=== PATIENT | female | born 1990 | race Caucasian/White ===

== ENCOUNTER 2018-10-13 22:39 | Emergency (ER) | payer OTHER ==
[2018-10-13 22:48] VITALS: BMI 48.9
[2018-10-13] MEDS ORDERED: SODIUM CHLORIDE IV ONE (23:29)
[2018-10-13] MEDS ORDERED: ACETAMINOPHEN 1000 MG/100 ML VIAL (NON FORMULARY) IVPB ONE (23:37)
--- NOTE | 2018-10-13 23:48 | PDOC ---
History of Present Illness - General Chief Complaint: Head/Neck problem Stated Complaint: FEVER/STIFF NECK/SENT BY PCP Time Seen by Provider: 10/13/18 22:56 History Source: Patient Exam Limitations: No Limitations - History of Present Illness Initial Comments: 10/13/18 23:41 28 yo F pmh PCOS p/w 4 days of fever/chills and headaches. PCP concerned about meningitis sent pt to ED. Pt measured temp at 102F. Headache described as frontal and throbbing, different than her migraines. Endorses mild neck stiffness, body myalgias and weakness, mild lightheadedness, and photophobia. Endorses decrease appetite when she feels febrile. Denies N/V/D, abdominal pain, dysuria, cough, sore throat, runny nose, ear pain , ear discharge. Denies changes in vision and hearing, numbness, tingling, dizziness, and focal neurologic deficits. No sick contacts. H/o PCOS NKDA No significant surgical hx Past History - Past Medical History Allergies/Adverse Reactions: Allergies Allergy/AdvReac Type Severity Reaction Status Date / Time No Known Allergies Allergy Verified 10/13/18 22:48 COPD: No Other medical history: PICOS - Suicide/Smoking/Psychosocial Hx Smoking History: Never smoked Review of Systems - Review of Systems Able to Perform ROS?: Yes Is the patient limited Mongolian proficient: No Constitutional: Yes: Chills, Fever HEENTM: No: Blurred Vision, Double Vision, Ear Discharge, Hearing Loss, Throat Pain Respiratory: No: Shortness of Breath Cardiac (ROS): Yes: Lightheadedness (see hpi, mild ). No: Chest Pain ABD/GI: Yes: Poor Appetite ("only with fever" ). No: Diarrhea, Nausea, Vomiting , Abdominal cramping : No: Dysuria Musculoskeletal: Yes: Joint Pain, Muscle Weakness Neurological: Yes: Headache, Weakness. No: Numbness, Tingling *Physical Exam - Vital Signs Last Vital Signs Temp Pulse Resp BP Pulse Ox 103 F H 115 H 18 142/81 99 10/13/18 22:44 10/13/18 22:44 10/13/18 22:44 10/13/18 22:44 10/13/18 22:44 - Physical Exam Comments: 10/13/18 23:50 GEN: resting in bed comfortably, NAD. Feels warm. HEENT: NC/AT, EOMI, PERRLA, CN II-XII intact. R EAR: clear EAC, TM translucent, nonbulging. L EAR: clear EAC, TM translucent, nonbulging. Moist membranes, nonerythematous oropharynx. FROM of the neck. NEURO: neg kernig and brudzinski signs. 5/5 UE and LE strength b/l. Sensation grossly intact in all extremities. CV: s1/s2, rapid, regular rhythm. no m/r/g LUNG: CTAB, no wheezes GI: soft, nt, nd, +BS ED Treatment Course - LABORATORY CBC & Chemistry Diagram: 10/14/18 00:05 10/14/18 00:05 Medical Decision Making - Medical Decision Making 10/13/18 23:55 28 yo F presenting with high fever, headache, and photophobia of 4 days. DDx meningitis, viral illness, sepsis Fever, Headache, Photophobia - CT Head - labs - CXR - consider LP 10/14/18 02:06 Given lab results and clinical picture (pt is nontoxic appearing with minimal neck stiffness), this is unlikely meningitis. Likely fever of viral origin. Dispo: home with strict return precautions *DC/Admit/Observation/Transfer Diagnosis at time of Disposition: Fever Qualifiers: Fever type: unspecified Qualified Code(s): R50.9 - Fever, unspecified - Discharge Dispostion Disposition: HOME Condition at time of disposition: Good Decision to Admit order: No - Referrals - Patient Instructions Printed Discharge Instructions: DI for Fever (Symptom) -- Adult Additional Instructions: For your fever and aches - you may take 1000mg of tylenol every 6 hours. You may add motrin between tylenol doses. Tylenol then 3 hours later can take motrin then 3 hours later can take tylenol and repeat. Please see your primary care physician within the next 4 days. Please return to the Emergency Department if you experience any of the following symptoms: increasing fevers, worsening headaches, worsening neck stiffness, worsening photophobia, increasing fatigue, any neurologic changes, or alterations in mental status (e.g. personality, confusion). - Post Discharge Activity Forms/Work/School Notes: Back to Work
--- NOTE | 2018-10-13 23:50 | PDOC ---
Documentation entered by Bran Jovel SCRIBE, acting as scribe for Sim Juan MD. Sim Juan MD: This documentation has been prepared by the Med clement Daniel, SCRIBE, under my direction and personally reviewed by me in its entirety. I confirm that the documentation accurately reflects all work, treatment, procedures, and medical decision making performed by me. Attending Attestation - Resident Resident Name: Joe Erickson - ED Attending Attestation I have performed the following: I have examined & evaluated the patient, The case was reviewed & discussed with the resident, I agree w/resident's findings & plan, Exceptions are as noted - HPI HPI: 10/13/18 23:44 The patient is a 28 year old female with a past medical history of PCOS here today for evaluation of fever. The patient reports that she has had a fever for 4 days. She reports that her temperature was 102 at home and notes associated chills, mild neck stiffness, and headache. She notes going to her PCP who was concerned for meningitis. She states that she has been taking naproxen at home but stopped yesterday. Patient denies lightheadedness. Denies chest pain, shortness of breath. Denies nausea, vomiting, diarrhea, abdominal pain. Denies sick contacts. Denies cough, rhinorrhea, sore throat. Allergies: NKA - Physicial Exam PE: 10/14/18 02:09 AOx3, no neck stiffness, FROM at neck LCTAB NFD - Medical Decision Making 10/14/18 02:10 Sent by PCP for concern of meningitis Clinical exam inconsistent with meningismus Likely viral illness Labs unremarkable Symptoms resolve with antipyretic dc home strict return precautions f/u with pcp
[2018-10-14] MEDS ORDERED: ACETAMINOPHEN INJECTION 100 ML IVPB ONE (00:12)
[2018-10-14 00:24] LABS: VENOUS PH 7.36 (7.31-7.41); VENOUS PO2 37.3 mmHg (30-40)
[2018-10-14 00:39] LABS: URINE APPEARANCE CLEAR; URINE BILIRUBIN NEGATIVE (NEGATIVE); URINE COLOR YELLOW; URINE GLUCOSE (UA) NEGATIVE (NEGATIVE); URINE KETONE NEGATIVE (NEGATIVE); URINE LEUK ESTERASE NEGATIVE (NEGATIVE); URINE NITRITE NEGATIVE (NEGATIVE); URINE PROTEIN NEGATIVE (NEGATIVE); URINE UROBILINOGEN 0.2 mg/dL (0.2-1.0)
[2018-10-14 01:05] LABS: BASO % 0.6 % (0-2.0); EOS % 0.1 % (0-4.5); HEMATOCRIT 41.2 % (32.4-45.2); HEMOGLOBIN 13.9 GM/dL (10.7-15.3); LYMPH % 19.5 % (8-40); MCH 27.8 pg (25.7-33.7); MCHC 33.7 g/dl (32.0-36.0); MEAN CELL VOLUME 82.5 fl (80-96); MEAN PLT VOLUME 8.1 fl (7.5-11.1); MONO % 9.1 % (3.8-10.2); NEUT % 70.7 % (42.8-82.8); PLATELET COUNT 269 K/MM3 (134-434); RBC 4.99 M/mm3 (3.60-5.2); RDW 14.2 % (11.6-15.6); WHITE BLOOD COUNT 5.7 K/mm3 (4.0-10.0)
[2018-10-14 01:07] LABS: BILIRUBIN,TOTAL 0.6 mg/dL (0.2-1); BLOOD UREA NITROGEN 9.4 mg/dL (7-18); CALCIUM 8.8 mg/dL (8.5-10.1); CREATININE 0.8 mg/dL (0.55-1.3); POTASSIUM 4.7 mmol/L (3.5-5.1); TOT PROT 7.6 g/dl (6.4-8.2)
[2018-10-14 01:29] LABS: ACTIVATED PTT 36.7 SECONDS (25.2-36.5); INR 1.16 (0.83-1.09); PROTHROMBIN TIME (PATIENT) 13.7 SEC (9.7-13.0)
[2018-10-14 02:11] VITALS: BP 135/89; PULSE 105; TEMP 99
--- NOTE | 2018-10-14 13:27 | EKG ---
Test Reason : Blood Pressure : / mmHG Vent. Rate : 091 BPM Atrial Rate : 091 BPM P-R Int : 134 ms QRS Dur : 084 ms QT Int : 354 ms P-R-T Axes : 037 036 038 degrees QTc Int : 435 ms NORMAL SINUS RHYTHM NORMAL ECG NO PREVIOUS ECGS AVAILABLE Confirmed by JESICA CHANG MD ([id number]) on 10/14/2018 1:27:46 PM Referred By: Confirmed By:JESICA CHANG MD
== END 2018-10-14 02:54 | disposition home or self-care (01) ==
LOC: JER 22:39
PROC: 3E0337Z Introduction of Electrolytic and Water Balance Substance into Peripheral Vein, Percutaneous Approach (ICD-10-PCS; principal; 2018-10-13)
PROC: 3E033NZ Introduction of Analgesics, Hypnotics, Sedatives into Peripheral Vein, Percutaneous Approach (ICD-10-PCS; 2018-10-13)
DX: R50.9 Fever, unspecified (principal); E28.2 Polycystic ovarian syndrome
CPT/HCPCS: 36415; 70450-TC; 71045-TC-FY; 80053; 81003; 82803; 83605; 84484; 84703; 85025; 85610; 85730; 87040; 87077; 87086; 93005; 93010; 99281-25; J0131; J7030